=== PATIENT | female | born 1950 | race Caucasian/White ===

== ENCOUNTER 2016-07-03 10:06 | Day surgery (SDC) | payer MEDICARE, OTHER ==
[2016-07-03] MEDS ORDERED: PROPOFOL 10 MG/ML VIAL IV ONE (13:25)
[2016-07-03] MEDS ORDERED: LIDOCAINE 2% MDV (20MG/ML) 20ML VIAL IV ONE (13:25)
--- NOTE | 2016-07-08 15:53 | Operative Note ---
DATE OF SURGERY: 07/03/2016 OPERATION: COLONOSCOPY. PREOPERATIVE DIAGNOSIS: Family history of colon cancer in brother. POSTOPERATIVE DIAGNOSIS: Normal exam. PREPARATION QUALITY: Excellent. ESTIMATED BLOOD LOSS: None. SPECIMENS: None. PROCEDURE: After informed consent was obtained from the patient, she was placed in the left lateral decubitus position in the endoscopy suite, sedated and monitored by the department of anesthesia. Digital rectal exam was unremarkable. A well-lubricated [id number] colonoscope was inserted into the rectum and advanced to the cecum. The cecum was noted by the ileocecal valve and appendiceal orifice and was unremarkable. The ascending colon, transverse colon, descending colon, sigmoid colon, and rectum were free of inflammatory changes, mass lesions, or polyps. J-turn views of the anorectum and forward views of the rectum were unrevealing. The endoscope was straightened, the rectal ampulla deflated, and the endoscope was removed. RECOMMENDATIONS: The patient should undergo repeat exam in 5 years based on her family history. As always, thank you for allowing me to participate in the healthcare of your patients. CC: HARLEY Hinojosa
== END 2016-07-03 11:47 | disposition home or self-care (01) ==
LOC: HOP 10:06
PROVIDERS: ATTEND Internal Medicine Gastroenterology
DX: Z80.0 Family history of malignant neoplasm of digestive organs (principal); I10 Essential (primary) hypertension
CPT/HCPCS: 00810; G0105